=== PATIENT | female | born 2000 | race American Indian/Alaskan Native ===

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

== ENCOUNTER 2022-10-19 05:43 | Emergency (ER) | payer MEDICAID, OTHER ==
[2022-10-19] MEDS ORDERED: Sodium Chloride 0.9% 1,000 ML IV SCH (06:15)
[2022-10-19] MEDS ORDERED: LORazepam 2 MG/ML SDV IVPUSH ONE (06:24)
[2022-10-19 06:43] LABS: ANION GAP 16.8 mEq/L (7-13); CHLORIDE,CL 98 mmol/L (98-107); ESTIMATED GFR 75 mL/min (>=60); SODIUM,NA 139 mmol/L (136-145)
[2022-10-19 07:10] LABS: AMPHETAMINES,URINE NEGATIVE (NEGATIVE); BARBITURATES,URINE NEGATIVE (NEGATIVE); BENZODIAZEPINE,URINE NEGATIVE (NEGATIVE); MDMA (ECSTASY), URINE NEGATIVE (NEGATIVE); METHADONE,URINE NEGATIVE (NEGATIVE); METHAMPHETAMINES,URINE POSITIVE (NEGATIVE); OPIATES,URINE NEGATIVE (NEGATIVE); OXYCODONE,URINE NEGATIVE (NEGATIVE); PHENCYCLIDINE,URINE NEGATIVE (NEGATIVE); TCA,URINE NEGATIVE (NEGATIVE)
== END 2022-10-19 07:22 | disposition home or self-care (01) ==
LOC: DL.ED 05:43
DX: F15.10 Other stimulant abuse, uncomplicated (principal)
CPT/HCPCS: 36415; 80053; 80305-QW; 80307; 81025; 83735; 85025; 96361; 96374; 99283; 99283-25; C1758; J2060; J7030

== ENCOUNTER 2022-11-15 17:55 | Emergency (ER) | payer MEDICAID ==
[2022-11-15 18:20] LABS: AMPHETAMINES,URINE NEGATIVE (NEGATIVE); BARBITURATES,URINE NEGATIVE (NEGATIVE); BENZODIAZEPINE,URINE NEGATIVE (NEGATIVE); MDMA (ECSTASY), URINE NEGATIVE (NEGATIVE); METHADONE,URINE NEGATIVE (NEGATIVE); METHAMPHETAMINES,URINE POSITIVE (NEGATIVE); OPIATES,URINE NEGATIVE (NEGATIVE); OXYCODONE,URINE NEGATIVE (NEGATIVE); PHENCYCLIDINE,URINE NEGATIVE (NEGATIVE); TCA,URINE NEGATIVE (NEGATIVE)
[2022-11-15 18:31] LABS: ANION GAP 14.4 mEq/L (7-13); CHLORIDE,CL 102 mmol/L (98-107); ESTIMATED GFR 73 mL/min (>=60); SODIUM,NA 139 mmol/L (136-145)
[2022-11-15 18:32] LABS: ACETAMINOPHEN 0 ug/mL (10-30 (Therapeutic))
[2022-11-15] MEDS ORDERED: Naloxone 2 MG/2 ML Syringe ONE (18:57)
[2022-11-15] MEDS ORDERED: Naloxone 2 MG/2 ML Syringe IVPUSH ONE (18:58)
== END 2022-11-15 19:28 ==
LOC: DL.ED 17:55
DX: N39.0 Urinary tract infection, site not specified (principal); T43.655A Adverse effect of methamphetamines, initial encounter
CPT/HCPCS: 36415; 80053; 80143; 80179; 80305; 80307; 81001; 82140; 83605; 83735; 84443; 84703; 85025; 86140; 87086; 87088; 87186; 93005; 96374; 99285; J2310; 93010; 99284

== ENCOUNTER 2022-11-15 20:32 | Emergency (ER) | payer MEDICAID | END 2022-11-16 01:16 | disposition home or self-care (01) | LOC: DL.ED 20:32 | DX: F15.10 Other stimulant abuse, uncomplicated (principal) | CPT/HCPCS: 99284 ==

== ENCOUNTER 2022-11-28 15:28 | Emergency (ER) | payer MEDICAID ==
[2022-11-28 15:43] LABS: AMPHETAMINES,URINE NEGATIVE (NEGATIVE); BARBITURATES,URINE NEGATIVE (NEGATIVE); BENZODIAZEPINE,URINE NEGATIVE (NEGATIVE); MDMA (ECSTASY), URINE NEGATIVE (NEGATIVE); METHADONE,URINE NEGATIVE (NEGATIVE); METHAMPHETAMINES,URINE NEGATIVE (NEGATIVE); OPIATES,URINE NEGATIVE (NEGATIVE); OXYCODONE,URINE NEGATIVE (NEGATIVE); PHENCYCLIDINE,URINE NEGATIVE (NEGATIVE); TCA,URINE NEGATIVE (NEGATIVE)
== END 2022-11-28 17:10 | disposition home or self-care (01) ==
LOC: DL.ED 15:28
DX: S02.2XXA Fracture of nasal bones, initial encounter for closed fracture (principal); S00.81XA Abrasion of other part of head, initial encounter; S30.810A Abrasion of lower back and pelvis, initial encounter; S60.419A Abrasion of unspecified finger, initial encounter; Y04.0XXA Assault by unarmed brawl or fight, initial encounter
CPT/HCPCS: 70450; 70486; 72125; 80305-QW; 81025; 87491; 87563; 87591; 99284; 99285

== ENCOUNTER 2023-01-27 18:33 | Emergency (ER) | payer MEDICAID ==
[2023-01-27] MEDS ORDERED: Sodium Chloride 0.9% 10 ML Syringe FLUSH PRN (19:04)
[2023-01-27] MEDS ORDERED: HYDROmorphone 1 MG/ML Syringe IVPUSH ONE ×3 (19:08→20:34)
[2023-01-27] MEDS ORDERED: Ondansetron 4 MG/2 ML SDV IVPUSH ONE (19:09)
[2023-01-27 19:26] LABS: BASOPHILS PERCENT AUTO 0.1 % (0.0-1.0); EOSINOPHILS PERCENT AUTO 0.5 % (1.0-3.0); HEMATOCRIT 36.6 % (37.0-47.0); HEMOGLOBIN 11.7 g/dL (12.0-16.0); LYMPHOCYTES PERCENT AUTO 24.6 % (20.5-50.1); MEAN CORPUSCULAR HEMOGLOBIN 25.8 pg (27.0-34.0); MEAN CORPUSCULAR VOLUME 80.6 fL (80-100); MONOCYTES PERCENT AUTO 8.6 % (2-8); NEUTROPHILS PERCENT AUTO 66.2 % (42.2-75.2); PLATELET COUNT,PLT 301 10^3/uL (150-450); RED BLOOD CELL COUNT 4.54 10^6/uL (4.2-5.4)
[2023-01-27 19:46] LABS: A/G RATIO 1.1; ALBUMIN 3.9 g/dL (3.4-5.0); ANION GAP 14.2 mEq/L (7-13); BILIRUBIN TOTAL 0.2 mg/dL (0.2-1.0); BUN/CREATININE RATIO 12.1 (No establ ref range); CALCIUM 8.7 mg/dL (8.5-10.1); CREATININE 1.07 mg/dL (0.55-1.02); EST CRCL DRUG DOSING (CG) 78.51 mL/min; MAGNESIUM 1.9 mg/dL (1.8-2.4); POTASSIUM,K 4.2 mmol/L (3.5-5.1); PROTEIN TOTAL,TP 7.6 g/dL (6.4-8.2)
[2023-01-27] MEDS ORDERED: ceFAZolin 1 GM Vial IVPUSH ONE (19:56)
[2023-01-27] MEDS ORDERED: Midazolam 1 MG/ML 2 ML SDV IVPUSH ONE (20:36)
[2023-01-27] MEDS ORDERED: Bupivacaine 0.5%/EPINEPHrine 1:200,000 10 ML SDV INJECT ONE (20:38)
[2023-01-27] MEDS ORDERED: Lidocaine 2% with EPINEPHrine 1:200,000 20 ML SDV INJECT ONE (21:09)
== END 2023-01-27 22:38 | disposition home or self-care (01) ==
LOC: DL.ED 18:33
DX: S52.321A Displaced transverse fracture of shaft of right radius, initial encounter for closed fracture (principal); S52.221A Displaced transverse fracture of shaft of right ulna, initial encounter for closed fracture; S51.811A Laceration without foreign body of right forearm, initial encounter; W01.0XXA Fall on same level from slipping, tripping and stumbling without subsequent striking against object, initial encounter; Y92.148 Other place in prison as the place of occurrence of the external cause
CPT/HCPCS: 12001; 29125; 36415; 73090; 80053; 83735; 85025; 96374; 96375; 96376; 99284; J0690; J1170; J2250; J2405; J3490